=== PATIENT | male | born 1990 | race Two or more races ===

== ENCOUNTER 2017-11-27 23:23 | Inpatient (IN) | payer OTHER ==
[2017-11-28 00:01] LABS: HEMATOCRIT 47.7 % (42.0-52.0); HEMOGLOBIN 15.8 g/dl (13.5-17.5); MEAN CORPUSCULAR HEMOGLOBIN 29.9 pg (27.0-33.0); MEAN CORPUSCULAR HGB CONC 33.1 g/dl (32.0-36.5); MEAN CORPUSCULAR VOLUME 90.2 fl (80.0-96.0); PLATELET COUNT, AUTOMATED 370 10^3/uL (150-450); RED BLOOD COUNT 5.29 10^6/uL (4.30-6.10); RED CELL DISTRIBUTION WIDTH 12.9 % (11.5-14.5); WHITE BLOOD COUNT 10.6 10^3/uL (4.0-10.0)
[2017-11-28 00:28] LABS: AMPHETAMINES LEVEL URINE NEGATIVE (NEGATIVE); BARBITURATES URINE NEGATIVE (NEGATIVE); BENZODIAZEPINES URINE NEGATIVE (NEGATIVE); CANNABINOIDS URINE NEGATIVE (NEGATIVE); COCAINE METABOLITE URINE NEGATIVE (NEGATIVE); METHADONE URINE NEGATIVE (NEGATIVE); OPIATES URINE NEGATIVE (NEGATIVE); PHENCYCLIDINE URINE NEGATIVE (NEGATIVE)
[2017-11-28 00:53] LABS: ACETAMINOPHEN LEVEL < 2.0 UG/ML (10.0-30.0); ALBUMIN 4.4 GM/DL (3.2-5.2); ALKALINE PHOSPHATASE 115 U/L (45-117); ALT/SGPT 25 U/L (12-78); ANION GAP 13 MEQ/L (8-16); AST/SGOT 15 U/L (7-37); BILIRUBIN,DIRECT 0.2 MG/DL (0.0-0.2); BILIRUBIN,TOTAL 0.8 MG/DL (0.2-1.0); BLOOD UREA NITROGEN 10 MG/DL (7-18); CALCIUM LEVEL 8.3 MG/DL (8.5-10.1); CARBON DIOXIDE LEVEL 21 MEQ/L (21-32); CHLORIDE LEVEL 112 MEQ/L (98-107); CREATININE FOR GFR 0.84 MG/DL (0.70-1.30); ETHYL ALCOHOL (ETHANOL) 0.248 % (0.000-0.010); GLOMERULAR FILTRATION RATE > 60.0 (>60); GLUCOSE, FASTING 103 MG/DL (70-100); POTASSIUM SERUM 3.6 MEQ/L (3.5-5.1); SALICYLATE LEVEL < 1.7 MG/DL (5.0-30.0); SODIUM LEVEL 146 MEQ/L (136-145); TOTAL PROTEIN 8.4 GM/DL (6.4-8.2)
[2017-11-28] MEDS ORDERED: ACETAMINOPHEN TAB 650MG DOSE (2X325MG) PO (15:15)
[2017-11-28] MEDS ORDERED: MOM 30ML SUSPENSION UDC PO (15:15)
[2017-11-28] MEDS ORDERED: LORazepam 2 MG TAB PO (15:15)
[2017-11-28] MEDS ORDERED: MAALOX 30 ML SUSP *UDC PO (15:15)
[2017-11-28] MEDS: MULTIVITAMINS/MINERALS THERAP 1 TAB PO (17:59)
[2017-11-28] MEDS: FOLIC ACID 1 MG TAB PO (17:59)
[2017-11-28] MEDS: THIAMINE 100 MG TAB PO (17:59)
[2017-11-28] MEDS: NICOTINE 7 MG/24 HR TRANSDERMAL TD (20:44)
[2017-11-29] MEDS: MULTIVITAMINS/MINERALS THERAP 1 TAB PO (08:33)
[2017-11-29] MEDS: NICOTINE 7 MG/24 HR TRANSDERMAL TD (08:33)
[2017-11-29] MEDS: THIAMINE 100 MG TAB PO ×2 (08:33→21:00)
[2017-11-29] MEDS: FOLIC ACID 1 MG TAB PO (08:33)
[2017-11-29] MEDS: SERTRALINE HCL 50 MG TAB PO (12:55)
[2017-11-30 07:17] LABS: HEMATOCRIT 44.4 % (42.0-52.0); HEMOGLOBIN 14.4 g/dl (13.5-17.5); MEAN CORPUSCULAR HEMOGLOBIN 29.3 pg (27.0-33.0); MEAN CORPUSCULAR HGB CONC 32.4 g/dl (32.0-36.5); MEAN CORPUSCULAR VOLUME 90.2 fl (80.0-96.0); PLATELET COUNT, AUTOMATED 292 10^3/uL (150-450); RED BLOOD COUNT 4.92 10^6/uL (4.30-6.10); RED CELL DISTRIBUTION WIDTH 12.8 % (11.5-14.5); WHITE BLOOD COUNT 7.7 10^3/uL (4.0-10.0)
[2017-11-30 07:46] LABS: ALBUMIN/GLOBULIN RATIO 1.21 (1.00-1.93); ALKALINE PHOSPHATASE 71 U/L (45-117); ALT/SGPT 23 U/L (12-78); ANION GAP 8 MEQ/L (8-16); AST/SGOT 10 U/L (7-37); BILIRUBIN,TOTAL 1.1 MG/DL (0.2-1.0); BLOOD UREA NITROGEN 12 MG/DL (7-18); CALCIUM LEVEL 9.1 MG/DL (8.5-10.1); CARBON DIOXIDE LEVEL 27 MEQ/L (21-32); CHLORIDE LEVEL 109 MEQ/L (98-107); CREATININE FOR GFR 0.82 MG/DL (0.70-1.30); GLOMERULAR FILTRATION RATE > 60.0 (>60); GLUCOSE, FASTING 95 MG/DL (70-100); POTASSIUM SERUM 4.3 MEQ/L (3.5-5.1); SODIUM LEVEL 144 MEQ/L (136-145); TOTAL PROTEIN 7.3 GM/DL (6.4-8.2)
[2017-11-30] MEDS: FOLIC ACID 1 MG TAB PO (08:14)
[2017-11-30] MEDS: NICOTINE 7 MG/24 HR TRANSDERMAL TD (08:14)
[2017-11-30] MEDS: SERTRALINE HCL 50 MG TAB PO (08:14)
[2017-11-30] MEDS: THIAMINE 100 MG TAB PO ×2 (08:14→21:00)
[2017-11-30] MEDS: INFLUENZA QUADRIVALENT PF VACCINE 0.5ML SYRINGE (90686) IM (08:14)
[2017-11-30] MEDS: MULTIVITAMINS/MINERALS THERAP 1 TAB PO (08:14)
[2017-11-30] MEDS: traZODone 50 MG TAB PO (22:50)
[2017-12-01] MEDS: MULTIVITAMINS/MINERALS THERAP 1 TAB PO (08:48)
[2017-12-01] MEDS: FOLIC ACID 1 MG TAB PO (08:48)
[2017-12-01] MEDS: SERTRALINE HCL 50 MG TAB PO (08:48)
[2017-12-01] MEDS: THIAMINE 100 MG TAB PO (08:48)
[2017-12-01] MEDS: NICOTINE 7 MG/24 HR TRANSDERMAL TD (08:49)
[2017-12-01] MEDS: hydrOXYzine 50 MG TAB PO (13:14)
[2017-12-02] MEDS: SERTRALINE HCL 50 MG TAB PO (08:42)
[2017-12-02] MEDS: FOLIC ACID 1 MG TAB PO (08:42)
[2017-12-02] MEDS: MULTIVITAMINS/MINERALS THERAP 1 TAB PO (08:42)
[2017-12-02] MEDS: NICOTINE 7 MG/24 HR TRANSDERMAL TD (08:42)
[2017-12-02] MEDS: hydrOXYzine 50 MG TAB PO (21:06)
[2017-12-03] MEDS: FOLIC ACID 1 MG TAB PO (08:42)
[2017-12-03] MEDS: MULTIVITAMINS/MINERALS THERAP 1 TAB PO (08:42)
[2017-12-03] MEDS: SERTRALINE HCL 50 MG TAB PO (08:42)
[2017-12-03] MEDS: NICOTINE 7 MG/24 HR TRANSDERMAL TD (08:43)
[2017-12-03] MEDS: hydrOXYzine 50 MG TAB PO (11:13)
[2017-12-03] MEDS: traZODone 50 MG TAB PO (21:05)
[2017-12-04] MEDS: MULTIVITAMINS/MINERALS THERAP 1 TAB PO (08:26)
[2017-12-04] MEDS: SERTRALINE HCL 50 MG TAB PO (08:26)
[2017-12-04] MEDS: FOLIC ACID 1 MG TAB PO (08:26)
[2017-12-04] MEDS: NICOTINE 7 MG/24 HR TRANSDERMAL TD (08:27)
== END 2017-12-04 10:45 | disposition home or self-care (01) | DRG 885 ==
LOC: M ED 23:23 → M ED INP 11-28 15:14 → M PSY 11-28 16:44
DX: F33.9 Major depressive disorder, recurrent, unspecified (principal); Z91.5 Personal history of self-harm; F10.10 Alcohol abuse, uncomplicated; F17.210 Nicotine dependence, cigarettes, uncomplicated

== ENCOUNTER 2018-10-12 21:12 | Emergency (ER) | payer OTHER ==
[~2018-10-12] VITALS: Ht 177.8 cm; Wt 90.9 kg
[~2018-10-12 21:12] MED LIST: AMOX500C PO; FOLI1TAB11 PO; HYDR1TAB33 PO; NALT50TA4 PO; NICO7PA TD; SERT-141 PO; TRAZ1TAB10 PO; VITMTA PO
[2018-10-12] MEDS ORDERED: UNABLE TO VERIFY (21:27)
[2018-10-12 21:32] LABS: BASO # 0.1 10^3/uL (0.0-0.2); BASO % 1.2 % (0.0-1.0); EOS # 0.1 10^3/uL (0.0-0.50); EOS % 1.3 % (0.0-3.0); HEMATOCRIT 47.3 % (42.0-52.0); HEMOGLOBIN 15.8 g/dl (13.5-17.5); LYMPH # 2.8 10^3/uL (1.5-6.5); LYMPH % 29.3 % (24.0-44.0); MEAN CORPUSCULAR HEMOGLOBIN 30.3 pg (27.0-33.0); MEAN CORPUSCULAR HGB CONC 33.4 g/dl (32.0-36.5); MEAN CORPUSCULAR VOLUME 90.6 fl (80.0-96.0); MONO # 0.6 10^3/uL (0.0-0.8); MONO % 6.8 % (0.0-5.0); NEUTROPHILS # 5.6 10^3/uL (1.8-7.7); NEUTROPHILS % 59.2 % (36.0-66.0); PLATELET COUNT, AUTOMATED 287 10^3/uL (150-450); RED BLOOD COUNT 5.22 10^6/uL (4.30-6.10); WHITE BLOOD COUNT 9.4 10^3/uL (4.0-10.0)
[2018-10-12] MEDS ORDERED: MULTIVITAMIN -ADULT INJECTION 10 ML, THIAMINE INJection 100 MG, FOLIC ACID 1 MG in NS 1... IV ONE (21:45)
[2018-10-12 21:54] LABS: AMPHETAMINES LEVEL URINE NEGATIVE (NEGATIVE); BARBITURATES URINE NEGATIVE (NEGATIVE); BENZODIAZEPINES URINE NEGATIVE (NEGATIVE); CANNABINOIDS URINE NEGATIVE (NEGATIVE); COCAINE METABOLITE URINE NEGATIVE (NEGATIVE); METHADONE URINE NEGATIVE (NEGATIVE); OPIATES URINE NEGATIVE (NEGATIVE); PHENCYCLIDINE URINE NEGATIVE (NEGATIVE)
[2018-10-12 22:18] LABS: ACETAMINOPHEN LEVEL < 2.0 UG/ML (10.0-30.0); ALBUMIN 4.1 GM/DL (3.2-5.2); ALT/SGPT 55 U/L (12-78); BILIRUBIN,DIRECT < 0.1 MG/DL (0.0-0.2); BILIRUBIN,TOTAL 0.6 MG/DL (0.2-1.0); BLOOD UREA NITROGEN 7 MG/DL (7-18); CALCIUM LEVEL 8.9 MG/DL (8.5-10.1); CARBON DIOXIDE LEVEL 26 MEQ/L (21-32); CHLORIDE LEVEL 107 MEQ/L (98-107); CREATININE FOR GFR 0.91 MG/DL (0.70-1.30); ETHYL ALCOHOL (ETHANOL) 0.123 % (0.000-0.010); GLOMERULAR FILTRATION RATE > 60.0 (>60); GLUCOSE, FASTING 123 MG/DL (70-100); POTASSIUM SERUM 3.5 MEQ/L (3.5-5.1); SALICYLATE LEVEL < 1.7 MG/DL (5.0-30.0); SODIUM LEVEL 143 MEQ/L (136-145); THYROID STIMULATING HORMONE 0.869 uIU/ML (0.358-3.740); TOTAL PROTEIN 7.8 GM/DL (6.4-8.2)
[2018-10-13 03:31] VITALS: BP 136/72
--- NOTE | 2018-10-13 14:21 | ECGEPIP ---
[facility] - ED Test Date: 2018-10-12 Pat Name: PILAR BALLESTEROS Department: Room: - Gender: Male [employer] Supervisor: paty : 1990 Requested By: ANGELO ZHAO Order Number: [id number] Reading MD: Edgar Jose Measurements Intervals [place] Rate: 121 P: 54 GA: 141 QRS: 85 QRSD: 96 T: -20 QT: 320 QTc: 454 Interpretive Statements SINUS TACHYCARDIA NONSPECIFIC T-WAVE ABNORMALITY 11/27/[address] T WAVE CHANGES Electronically Signed on 10-13-2018 14:21:24 EDT by Edgar Jose
== END 2018-10-13 03:38 | disposition home or self-care (01) ==
LOC: M ED 21:12
DX: F10.20 Alcohol dependence, uncomplicated (principal); Y90.0 Blood alcohol level of less than 20 mg/100 ml; Z79.899 Other long term (current) drug therapy
CPT/HCPCS: 36415; 80053; 80307; 82248; 84443; 85025; 93005; 99285; G0480; J3411